=== PATIENT | male | born 2000 ===

== ENCOUNTER 2018-04-07 23:14 | Emergency (ER) | payer MEDICAID ==
[2018-04-08 01:07] LABS: CKMB 3.9 U/L (0.0-3.6)
[2018-04-08 01:12] LABS: TROPONIN-I < 0.017 ng/mL (0.000-0.060)
[2018-04-08 02:07] LABS: BASOPHILS 0.1 % (0-2); EOSINOPHILS 0.7 % (0-7); HEMATOCRIT 36.7 % (42.0-54.0); HEMOGLOBIN 12.6 g/dL (13.5-17.5); IMMATURE GRANULOCYTES 0.1 % (0-5); MCH 31.1 pg (26.0-34.0); MCHC 34.3 g/dL (31.0-37.0); MCV 90.6 fL (80.0-100.0); MEAN PLATELET VOLUME 10.3 fL (7.4-10.4); NEUTROPHILS 75.1 % (40-80); PLATELET COUNT 224 10x3/uL (130-400); RBC 4.05 10x6/uL (4.20-6.10); RDW 12.8 % (11.5-14.5); WBC 9.1 10x3/uL (4.8-10.8)
[2018-04-08 02:45] LABS: UDS - AMPHET NEGATIVE QUAL (NEGATIVE); UDS - BARB NEGATIVE QUAL (NEGATIVE); UDS - BENZO NEGATIVE QUAL (NEGATIVE); UDS - COCAINE NEGATIVE QUAL (NEGATIVE); UDS - OPIATE NEGATIVE QUAL (NEGATIVE); UDS - PCP NEGATIVE QUAL (NEGATIVE); UDS - THC POSITIVE QUAL (NEGATIVE)
== END 2018-04-08 04:22 | disposition home or self-care (01) ==
LOC: D.ER 23:14
PROVIDERS: Family Medicine; Nurse Practitioner Family
DX: R07.89 Other chest pain (principal); F17.200 Nicotine dependence, unspecified, uncomplicated